=== PATIENT | female | born 1985 | race Asian ===

== ENCOUNTER 2017-05-14 19:05 | Emergency (ER) | payer MEDICARE, MEDICAID ==
[~2017-05-14] VITALS: Ht 172.7 cm; Wt 98.2 kg
[~2017-05-14 19:05] MED LIST: ALLO100T30 PO; AMLO10TA2 PO; ATOR10TA9 PO; CALC667T PO; CARV-39 PO; ERGO500047 PO; FERR325T18 PO; FURO80TA3 PO; ISOS20TA58 PO; SODI650T PO
[2017-05-14 19:47] LABS: ASPARTATE AMINO TRANSFERASE 3 U/L (15-37); BLOOD UREA NITROGEN 45 mg/dL (7-18)
[2017-05-14 21:04] LABS: HEMATOCRIT 34.4 % (34.6-47.8); HEMOGLOBIN 10.8 g/dL (11.7-16.4); WHITE BLOOD COUNT 5.7 x10^3/uL (3.4-10)
[2017-05-14 21:36] VITALS: BP 175/104
== END 2017-05-14 21:39 | disposition home or self-care (01) ==
LOC: ED 21:33
DX: S60.562A Insect bite (nonvenomous) of left hand, initial encounter (principal); S60.561A Insect bite (nonvenomous) of right hand, initial encounter; F41.9 Anxiety disorder, unspecified; R94.4 Abnormal results of kidney function studies; I12.0 Hypertensive chronic kidney disease with stage 5 chronic kidney disease or end stage renal disease; E11.22 Type 2 diabetes mellitus with diabetic chronic kidney disease; N18.5 Chronic kidney disease, stage 5; F17.210 Nicotine dependence, cigarettes, uncomplicated; Z99.2 Dependence on renal dialysis; W57.XXXA Bitten or stung by nonvenomous insect and other nonvenomous arthropods, initial encounter; Y93.89 Activity, other specified; Y92.89 Other specified places as the place of occurrence of the external cause; Y99.8 Other external cause status
CPT/HCPCS: 36415; 80053; 82140; 85025; 99284